=== PATIENT | male | born 1980 | race Caucasian/White ===

== ENCOUNTER 2022-03-27 11:36 | Emergency (ER) | payer MEDICAID ==
[~2022-03-27] VITALS: Ht 182.9 cm; Wt 105.2 kg
[2022-03-27 11:44] VITALS: BP 120/74
--- NOTE | 2022-03-27 11:58 | NUR ---
41 YO MALE FROM HOME FOR VOMITING BLOOD FOR 2WEEKS. PT STATES THAT IT ONLY HAPPENS AT NIGHT. STATES THAT HE VOMITS 5-6X A NIGHT. HAS HX OF ACID REFLUX AND TAKES OMEPRAZOLE AT HOME.
[2022-03-27 12:25] LABS: BASOPHILS # (AUTO) 0.1 K/uL (0.00-0.22); BASOPHILS % (AUTO) 0.8 % (0.0-2.0); EOSINOPHILS # (AUTO) 0.3 K/uL (0-0.4); EOSINOPHILS % (AUTO) 3.8 % (0.0-4.0); HEMATOCRIT 40.2 % (36-52); HEMOGLOBIN 14.5 g/dL (12.0-18.0); LYMPHOCYTES # (AUTO) 1.9 K/uL (2.0-11.5); LYMPHOCYTES % (AUTO) 26.7 % (20.5-51.1); MEAN CORPUSCULAR HEMOGLOBIN 31 pg (27-31); MEAN CORPUSCULAR HGB CONC 36 g/dL (33-37); MONOCYTES # (AUTO) 0.5 K/uL (0.8-1.0); MONOCYTES % (AUTO) 6.8 % (1.7-9.3); NEUTROPHILS # (AUTO) 4.4 K/uL (1.8-7.7); NEUTROPHILS % (AUTO) 61.9 % (42.2-75.2); PLATELET COUNT (AUTO) 205 K/uL (140-450); RED BLOOD CELL COUNT(AUTO) 4.67 MIL/uL (4.20-6.10); RED CELL DISTRIBUTION WIDTH 14.4 % (11.6-13.7); WHITE BLOOD COUNT (AUTO) 7.1 K/uL (4.8-10.8)
[2022-03-27] MEDS ORDERED: ONDANSETRON 4 MG ODT PO ONE (12:40)
[2022-03-27] MEDS ORDERED: FAMOTIDINE 20 MG TAB PO ONE (12:40)
[2022-03-27 13:04] LABS: ALBUMIN 4.1 g/dL (3.4-5.0); ANION GAP 12.1 (8-16); CARBON DIOXIDE 27.9 mmol/L (21-32); CREATININE 0.9 mg/dL (0.6-1.3); TOTAL BILIRUBIN 0.7 mg/dL (0.0-1.0)
[2022-03-27 13:27] LABS: PROTHROMBIN TIME 9.6 secs (10.8-13.4)
[2022-03-27] MEDS ORDERED: ONDA-188 PO (14:11)
[2022-03-27] MEDS ORDERED: OMEP40EC24 PO (14:11)
[2022-03-27 14:19] VITALS: BP 122/81
--- NOTE | 2022-03-27 14:19 | NUR ---
Patient discharged with v/s stable. Written and verbal after care instructions given and explained. Patient verbalized understanding. Ambulatory with steady gait. All questions addressed prior to discharge. Advised to follow up with PMD.
== END 2022-03-27 14:19 | disposition home or self-care (01) ==
LOC: MED 11:36
DX: K92.2 Gastrointestinal hemorrhage, unspecified (principal); K21.9 Gastro-esophageal reflux disease without esophagitis
CPT/HCPCS: 36415; 80053; 83690; 85025; 85610; 85730; 86886; 86900; 86901; 93005; 99284; Q0162

== ENCOUNTER 2023-03-23 13:44 | Emergency (ER) | payer MEDICAID, OTHER ==
[~2023-03-23] VITALS: Ht 175.3 cm; Wt 105.7 kg
[~2023-03-23 13:44] MED LIST: OMEP40EC24 PO; ONDA-188 PO
[2023-03-23 13:51] VITALS: BP 104/68; PULSE 67; RESP 18; TEMP 98; O2SAT 99
[2023-03-23] MEDS ORDERED: NAPR-1704 PO (16:47)
[2023-03-23] MEDS ORDERED: KETOROLAC 30 MG/ML VIAL IM ONE (17:00)
[2023-03-23] MEDS ORDERED: TRAM-748 PO (17:02)
[2023-03-23] MEDS ORDERED: ESOM40EC PO (17:02)
== END 2023-03-23 17:41 | disposition home or self-care (01) ==
LOC: MED 13:44
DX: M25.561 Pain in right knee (principal); M54.50 Low back pain, unspecified; K21.9 Gastro-esophageal reflux disease without esophagitis; Z79.899 Other long term (current) drug therapy; Z79.1 Long term (current) use of non-steroidal anti-inflammatories (NSAID)
CPT/HCPCS: 72100; 73562; 93971; 96372; 99285; J1885; Q0092